=== PATIENT | male | born 1955 | race African-American/Black ===

== ENCOUNTER 2021-09-04 16:21 | Inpatient (IN) | payer OTHER ==
[2021-09-04 18:49] LABS: BASO % 0.9 % (0-2.0); EOS % 6.4 % (0-4.5); HEMATOCRIT 32.5 % (35.4-49); HEMOGLOBIN 11.1 GM/dL (11.7-16.9); LYMPH % 29.4 % (8-40); MCH 29.9 pg (25.7-33.7); MCHC 34.2 g/dl (32.0-35.9); MEAN CELL VOLUME 87.5 fl (80-96); MEAN PLT VOLUME 8.4 fl (7.5-11.1); NEUT % 52.3 % (42.8-82.8); PLATELET COUNT 211 10^3/uL (134-434); RBC 3.71 M/mm3 (4.00-5.60); RDW 16.5 % (11.9-15.9); WHITE BLOOD COUNT 3.7 K/mm3 (4.0-10.0)
[2021-09-04 19:09] LABS: CHLORIDE 104 mmol/L (98-107); SODIUM 138 mmol/L (136-145)
[2021-09-04 19:12] LABS: ALBUMIN 2.9 g/dl (3.4-5.0); ANION GAP 7 MMOL/L (8-16); CALCIUM 8.6 mg/dL (8.5-10.1); CO2 27 mmol/L (21-32); GLUCOSE,RANDOM 89 mg/dL (74-106); MAGNESIUM 2.3 mg/dL (1.8-2.4)
[2021-09-04 19:15] LABS: CREATININE 0.9 mg/dL (0.55-1.3); SGOT/AST 39 U/L (15-37); SGPT/ALT 47 U/L (13-61)
[2021-09-04 19:17] LABS: BILIRUBIN,TOTAL 0.4 mg/dL (0.2-1); TOT PROT 8.2 g/dl (6.4-8.2)
[2021-09-04 19:18] LABS: ALK PHOS 59 U/L (45-117)
[2021-09-04 19:20] LABS: N-TERMINAL BNP 12.8 pg/ml (5-125)
[2021-09-04] MEDS ORDERED: ACETAMINOPHEN 325 MG TABLET (FP) PO PRN (22:13)
[2021-09-05 06:53] LABS: BASO % 0.8 % (0-2.0); EOS % 7.4 % (0-4.5); HEMATOCRIT 33.9 % (35.4-49); HEMOGLOBIN 11.6 GM/dL (11.7-16.9); LYMPH % 30.1 % (8-40); MCH 30.4 pg (25.7-33.7); MCHC 34.3 g/dl (32.0-35.9); MEAN CELL VOLUME 88.5 fl (80-96); MEAN PLT VOLUME 8.7 fl (7.5-11.1); MONO % 12.8 % (3.8-10.2); NEUT % 48.9 % (42.8-82.8); PLATELET COUNT 208 10^3/uL (134-434); RBC 3.83 M/mm3 (4.00-5.60); RDW 16.5 % (11.9-15.9); WHITE BLOOD COUNT 3.5 K/mm3 (4.0-10.0)
[2021-09-05 07:10] LABS: BLOOD UREA NITROGEN 21.1 mg/dL (7-18); CALCIUM 8.7 mg/dL (8.5-10.1)
[2021-09-05 07:11] LABS: ALBUMIN 2.9 g/dl (3.4-5.0)
[2021-09-05 07:15] LABS: BILIRUBIN,TOTAL 0.5 mg/dL (0.2-1); TOT PROT 8.1 g/dl (6.4-8.2)
[2021-09-05] MEDS ORDERED: FUROSEMIDE 40 MG/4 ML INJECTABLE VIAL ONE (08:58)
[2021-09-05] MEDS ORDERED: ENOXAPARIN NA (PORCINE) 40 MG/0.4 ML DISP.SYRIN SQ ONE (08:58)
[2021-09-05] MEDS: ENOXAPARIN NA (PORCINE) 40 MG/0.4 ML DISP.SYRIN SQ SCH (09:58)
[2021-09-05] MEDS: FUROSEMIDE 40 MG/4 ML INJECTABLE VIAL IVPUSH SCH (09:58)
[2021-09-05 20:50] VITALS: BMI 33.5
[2021-09-05] MEDS: ARIPiprazole 5 MG TABLET PO SCH (21:38)
[2021-09-05] MEDS: FINASTERIDE 5 MG TABLET (FP) PO SCH (21:38)
[2021-09-06] MEDS: ENOXAPARIN NA (PORCINE) 40 MG/0.4 ML DISP.SYRIN SQ SCH (10:31)
[2021-09-06] MEDS: FUROSEMIDE 40 MG/4 ML INJECTABLE VIAL IVPUSH SCH (10:31)
[2021-09-06] MEDS: FINASTERIDE 5 MG TABLET (FP) PO SCH (21:51)
[2021-09-06] MEDS: ARIPiprazole 5 MG TABLET PO SCH (21:52)
[2021-09-07 07:32] LABS: BASO % 0.7 % (0-2.0); EOS % 7.4 % (0-4.5); HEMATOCRIT 34.8 % (35.4-49); HEMOGLOBIN 12.2 GM/dL (11.7-16.9); LYMPH % 32.2 % (8-40); MCH 30.7 pg (25.7-33.7); MCHC 35.2 g/dl (32.0-35.9); MEAN CELL VOLUME 87.3 fl (80-96); MEAN PLT VOLUME 8.9 fl (7.5-11.1); MONO % 13.4 % (3.8-10.2); NEUT % 46.3 % (42.8-82.8); PLATELET COUNT 219 10^3/uL (134-434); RBC 3.98 M/mm3 (4.00-5.60); RDW 16.2 % (11.9-15.9); WHITE BLOOD COUNT 3.5 K/mm3 (4.0-10.0)
[2021-09-07 07:42] LABS: CALCIUM 8.4 mg/dL (8.5-10.1)
[2021-09-07 07:43] LABS: ALBUMIN 2.8 g/dl (3.4-5.0); BLOOD UREA NITROGEN 21.5 mg/dL (7-18)
[2021-09-07 07:47] LABS: CREATININE 1.1 mg/dL (0.55-1.3); TOT PROT 8.3 g/dl (6.4-8.2)
[2021-09-07 07:48] LABS: BILIRUBIN,TOTAL 0.6 mg/dL (0.2-1)
[2021-09-07] MEDS: TAMSULOSIN HCL 0.4 MG CAP PO SCH (09:23)
[2021-09-07] MEDS: ENOXAPARIN NA (PORCINE) 40 MG/0.4 ML DISP.SYRIN SQ SCH (09:23)
[2021-09-07] MEDS: FUROSEMIDE 40 MG/4 ML INJECTABLE VIAL IVPUSH SCH (09:23)
[2021-09-07] MEDS ORDERED: PT OWN MED DRAWER 7, Y5N ONE ×3 (13:40→21:33)
[2021-09-07] MEDS: ARIPiprazole 5 MG TABLET PO SCH (21:42)
[2021-09-07] MEDS: FINASTERIDE 5 MG TABLET (FP) PO SCH (21:42)
[2021-09-08] MEDS: TAMSULOSIN HCL 0.4 MG CAP PO SCH (09:31)
[2021-09-08] MEDS: ENOXAPARIN NA (PORCINE) 40 MG/0.4 ML DISP.SYRIN SQ SCH (09:31)
[2021-09-08] MEDS ORDERED: FUROSEMIDE 40 MG TABLET (FP) PO SCH (10:00)
[2021-09-08 16:00] VITALS: BP 148/70; PULSE 90; TEMP 98.4
== END 2021-09-08 16:52 | disposition home or self-care (01) | DRG 301 ==
LOC: JER 16:21 → JERBED 20:47 → J4W 09-05 20:19
PROVIDERS: ADMIT Internal Medicine; ATTEND Internal Medicine
DX: I73.9 Peripheral vascular disease, unspecified (principal); I11.0 Hypertensive heart disease with heart failure; N40.0 Benign prostatic hyperplasia without lower urinary tract symptoms; E66.9 Obesity, unspecified; Z68.33 Body mass index [BMI] 33.0-33.9, adult; E87.70 Fluid overload, unspecified; I50.9 Heart failure, unspecified; F81.9 Developmental disorder of scholastic skills, unspecified; G47.33 Obstructive sleep apnea (adult) (pediatric)
CPT/HCPCS: 36415; 71045-TC-FY; 80053; 82550; 82553; 83735; 83880; 84443; 84484; 85025; 93005; 93010; 93306-TC; 93970-TC; 99285-25; C9803; U0003; U0005